=== PATIENT | male | born 1950 | race Caucasian/White ===

== ENCOUNTER 2019-11-16 12:55 | Observation (INO) ==
[2019-11-16] MEDS ORDERED: IOPAMIDOL 100 ML BOTTLE IV ONE (12:56)
[2019-11-16] MEDS ORDERED: 0.9 % SODIUM CHLORIDE 1,000 ML IV ONE (13:17)
--- NOTE | 2019-11-16 13:23 | Emergency Department Note ---
Abdominal Pain HPI - General Chief Complaint: Abdominal Pain Stated Complaint: abdominal pain Time Seen by Provider: 11/16/19 13:07 Source: patient Mode of arrival: ambulatory Limitations: no limitations - History of Present Illness HPI Narrative: 69-year-old male patient presents emergency department with chief complaint of worsening epigastric/middle abdominal pain x3 days. Patient tells me he woke up on Tuesday feeling some the pain. During that time he thought he was constipated used a suppository as well as took some OTC Tums. He mentions h aving a moderately sized bowel movement on . However, his pain has worsened since that time. He describes the pain is a sharp, stabbing pain to the middle of his abdomen. This "moves with me" as he changes position. He denies systemic fever, sweats, chills. However, he has a mild fever in triage. He admits to previous history of hepatitis C but tells me "that is been cleared". He denies nausea, vomiting, diarrhea, hematemesis, hematuria, or hematochezia. ROS: Denies sinus congestion, runny nose, cough, or possible exposure to the novel coronavirus. Denies shortness of breath. Admits to ongoing smoking half pack daily since the age of 15 (27 pack years). Denies retrosternal chest pain or palpitations. Denies dysuria or frequency. Denies focal weakness. - Related Data Home Medications Medication Instructions Recorded Confirmed amlodipine 5 mg tablet 5 mg PO QDAY 08/28/19 11/16/19 methadone 10 mg tablet 10 mg PO QDAY 08/28/19 11/16/19 cyclobenzaprine 10 mg tablet 10 mg PO TID 09/13/19 11/16/19 hydrocodone 10 mg-acetaminophen 1 tab PO PRN PRN tab 09/13/19 11/16/19 325 mg tablet Previous Rx's Medication Instructions Recorded losartan 100 1 tab PO QDAY #90 tab 05/14/19 mg-hydrochlorothiazide 12.5 mg tablet Allergies Allergy/AdvReac Type Severity Reaction Status Date / Time lisinopril Allergy Unknown Cough Unverified 09/13/19 12:58 Review of Systems All systems ED: reviewed and negative except as stated. Abdominal Pain PMH - Past Medical History Medical history: Reports: hypertension, other (Hepatitis C) Psychiatric history: Reports: other (unknown) - Social History Smoking status: Current every day smoker Alcohol use: Reports: None Drug use: Reports: none Physical Exam Limitations: no limitations General appearance: other (Well-developed, well-nourished, somewhat anxious appearing 69-year-old male patient laying semirecumbent on the emergency room gurney obviously uncomfortable. He is in no acute respiratory distress.) Head: atraumatic, normocephalic Eye: Present: PERRL, EOMI (Right eye is deviated laterally. 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 Absent: lymphadenopathy, thyromegaly Chest: Present: symmetric chest wall rise Respiratory: Present: normal lung sounds bilaterally. Absent: respiratory distress, rales/crackles, wheezes, stridor, accessory muscle use, prolonged expiratory phase Cardiovascular: Present: regular rate, normal rhythm. Absent: systolic murmur, diastolic murmur Abdominal: Present: soft, tenderness, guarding, hyperactive bowel sounds, organomegaly. Absent: distention, rebound, rigidity, ascites, mass, bruit, pulsatile mass Abdominal tenderness: Present: epigastrium, rachel umbilical, moderate Extremities: Present: normal inspection, full ROM, normal capillary refill. Absent: pedal edema Neurological: Present: alert, oriented X3 Psychiatric: Present: normal affect, anxious Skin: Present: warm, dry, normal color Course Course Narrative: Patient has considerable abdominal tenderness on exam. He is mildly febrile at 99.4 with an elevated heart rate of 102. We are going to order some screening laboratory studies including a lactic acid. An abdominal/pelvic CT scan with contrast was ordered and reviewed. Normal saline was started at thousand milliliter bolus. Patient was given Dilaudid 0.5 mg IVP. A review of his laboratory studies show the following: CBC hemoglobin 13.6, platelets 110, all others within normal limits. CMP CO2 21, BUN 28, glucose 114, all others within normal limits. Lipase 35. Lactic acid 1.4. Abdominal/pelvic CT scan with contrast read by the radiologist as considerable cholecystitis and cholelithiasis. There was question of pancreatitis and radiologist did r ecommend correlating this with lipase and amylase. Patient's lipase was within normal limits. After reviewing all the data I reached out to our general surgeon (Dr. Owusu) and discussed the case with him. At this time Dr. Owusu advised me to place holding orders he is to be kept n.p.o. and on IV fluids. Dr. Owusu said he would follow him later this evening. With this in mind, the holding orders are going to be placed. Afterwards, patient will be under the care of Dr. Owusu and the surgical service. All further treatment decisions, modalities, and ultimate patient disposition be carried out by Dr. Owusu. Vital Signs Temperature 99.4 F H 11/16/19 12:56 Pulse Rate 109 H 11/16/19 12:56 Respiratory Rate 16 11/16/19 12:56 Blood Pressure 144/110 11/16/19 12:56 Pulse Oximetry (%) 97 11/16/19 12:56 Temperature 99.4 F H 11/16/19 12:56 Pulse Rate 94 H 11/16/19 15:46 Respiratory Rate 16 11/16/19 12:56 Blood Pressure 148/74 11/16/19 15:46 Pulse Oximetry (%) 98 11/16/19 15:46 Abdominal Pain - Lab Data Lab results reviewed: Yes I reviewed the patient's lab results. Result diagrams: 11/16/19 13:25 11/16/19 13:25 Lab Results 11/16/19 11/16/19 11/16/19 Range/Units 13:25 13:25 13:25 WBC 10.8 (4.50-11.00) K/mcL RBC 4.74 (4.63-6.08) M/mcL Hgb 13.6 L (13.7-17.5) g/dL Hct 40.7 (40.1-51.0) % POC Hct 41.0 (41.0-55.0) % MCV 85.9 (80.0-100.0) fL MCH 28.7 (26.0-34.0) pg MCHC 33.4 (31.0-36.0) g/dL RDW 14.3 (11.5-14.5) % Plt Count 110 L (140-440) K/mcL MPV 11.9 H (7.4-10.4) fL Gran % 87.8 H (38.0-78.0) % Lymph % (Auto) 6.1 L (15.5-49.0) % Meade % (Auto) 6.0 (1.0-12.0) % Eos % (Auto) 0 (0.0-7.0) % Baso % (Auto) 0.1 (0.0-2.0) % Gran # 9.51 H (1.80-8.00) K/mcL Lymph # (Auto) 0.66 L (1.50-4.80) K/mcL Meade # (Auto) 0.65 (0.10-0.90) K/mcL Eos # (Auto) 0 (0.00-0.70) K/mcL Baso # (Auto) 0.01 (0.00-0.30) K/mcL Differential Comment VBG Lactic Acid 1.4 (0.5-2.0) mmol/L POC Sodium 135 (133-145) mmol/L Sodium 133 (133-145) mmol/L POC Potassium 3.6 (3.3-5.1) mmol/L Potassium 3.7 (3.3-5.1) mmol/L POC Chloride 102 (96-108) mmol/L Chloride 99 (96-108) mmol/L Carbon Dioxide 21 L (22-30) mmol/L POC Total CO2 23 (22-30) mmol/L Anion Gap 13.0 (8-16) POC BUN 29 H (8-23) mg/dl BUN 28 H (8-23) mg/dl Creatinine 1.0 (0.7-1.2) mg/dl POC Creatinine 1.0 (0.7-1.2) mg/dl GFR Calculation 78 Glucose 114 H (70-105) mg/dL POC Glucose 113 H (70-105) mg/dL Calcium 9.2 (8.6-10.4) mg/dl POC WB Ioniz Calcium 1.12 L (1.16-1.32) mmol/L Total Bilirubin 0.6 (0.0-1.0) mg/dL AST 17 (0-37) U/l ALT 11 (0-40) U/l Alkaline Phosphatase 64 (39-117) U/L Total Protein 7.1 (5.9-8.4) gm/dL Albumin 3.4 (3.2-5.2) gm/dL Globulin 3.7 (2.2-3.7) gm/dL Albumin/Globulin Ratio 0.9 L (1.0-2.3) Lipase 35 (7-60) U/L - Radiology Data Radiology results reviewed: Yes I reviewed the patient's radiology results. Ordering Physician: Ancelmo Juan PA-C Date of Service: 11/16/19 Procedure(s): CT abdomen pelvis w con Accession Number(s): [id number] CLINICAL INFORMATION: Epigastric pain COMPARISON: None. TECHNIQUE: Following enteric contrast, 80 cc of Isovue-370 were injected intravenously, and 60 seconds later, 0.625 mm helical slices were obtained from the mid heart through the subtrochanteric regions. Following reconstruction, 2.5 mm sagittal, coronal and axial reformatted images were processed and reviewed at bone, lung and soft tissue windows. Five minutes later, 0.625 mm helical slices were obtained from the mid heart through the kidneys and viewed at soft tissue windows.The exam was performed using radiation dose optimization techniques including, but not limited to, automated exposure control, adjustment of the mA and/or kV according to patient size and use of iterative reconstruction technique. FINDINGS: Lung bases show focal scarring in the lingular region. There are no effusions. The visualized heart is moderately enlarged with left ventricular dilatation. Abdominal images show minimal fatty change within the liver, but no focal hepatic lesion. The gallbladder wall is mildly enlarged with moderate pericholecystic fluid. A few faint air-containing cholesterol stones are seen within the gallbladder. There is also moderate fluid or edema extending into the karan hepatis, periduodenal and peripancreatic head region. Findings suggestive of cholecystitis. The intrahepatic and common bile ducts are normal caliber: CBD is 5 mm. The pancreas is mildly atrophic, but shows no definite inflammation within the pancreatic parenchyma itself. A 5 mm nonobstructing stone is seen inferior calyx of the left kidney. The remainder of both kidneys, adrenal glands spleen and aorta including aortic branches are normal in size, configuration and attenuation without focal lesion. There is no free air or adenopathy. Pelvic images show prostate and seminal vesicles be normal. Urinary bladder wall appears mildly thickened but this is likely artifact of under distention. The stomach, small bowel appendix and large bowel are unremarkable with exception of a few sigmoid diverticuli. Bone windows show no osseous abnormality. IMPRESSION: 1. Cholecystitis. Intrahepatic and common bile ducts are normal caliber. 2. Fluid in the periduodenal and peripancreatic region is almost certainly related to cholecystitis but please correlate with amylase and lipase to ensure the absence of serologic evidence for pancreatitis. 3. 5 mm nonobstructing stone - inferior calyx left kidney. 4. Sigmoid diverticulosis, but no evidence of diverticulitis. 5. Moderate cardiomegaly with left ventricular dilatation. Interpreted and Authenticated by: Jose Daniel Santos 11/16/19 Disposition Pt seen by PRINCIPAL TECHNICAL WRITER/PA only: Yes Clinical Impression: Cholecystitis with cholelithiasis Qualifiers: Cholelithiasis location: gallbladder Cholecystitis acuity: acute Biliary ob struction: without biliary obstruction Qualified Code(s): K80.00 - Calculus of gallbladder with acute cholecystitis without obstruction Disposition: Xfer As Outpt/Obs ([facility]) Referrals: Jacinto Espitia PA-C [Primary Care Provider] -
[2019-11-16 13:39] LABS: POC Blood Urea Nitrogen 29 mg/dl (8-23); POC CO2 23 mmol/L (22-30); POC Calcium, Ionized 1.12 mmol/L (1.16-1.32); POC Chloride 102 mmol/L (96-108); POC Glucose, Random 113 mg/dL (70-105); POC Potassium 3.6 mmol/L (3.3-5.1); POC Sodium 135 mmol/L (133-145)
[2019-11-16] MEDS: HYDROmorphone 0.5 MG/0.5 ML SYRINGE IV PRN ×6 (13:46→23:08)
[2019-11-16 14:51] LABS: ALT/SGPT 11 U/l (0-40); AST/SGOT 17 U/l (0-37); Albumin 3.4 gm/dL (3.2-5.2); Albumin/Globulin Ratio 0.9 (1.0-2.3); Alkaline Phosphatase 64 U/L (39-117); Bilirubin,Total 0.6 mg/dL (0.0-1.0); Blood Urea Nitrogen 28 mg/dl (8-23); Calcium 9.2 mg/dl (8.6-10.4); Carbon Dioxide 21 mmol/L (22-30); Chloride 99 mmol/L (96-108); Globulin 3.7 gm/dL (2.2-3.7); Glomerular Filtration Rate 78; Glucose 114 mg/dL (70-105)
[2019-11-16 15:05] LABS: Basophils # (Auto) 0.01 K/mcL (0.00-0.30); Basophils % (Auto) 0.1 % (0.0-2.0); Eosinophils # (Auto) 0 K/mcL (0.00-0.70); Eosinophils % (Auto) 0 % (0.0-7.0); Granulocytes % (Auto) 87.8 % (38.0-78.0); Hematocrit 40.7 % (40.1-51.0); Hemoglobin 13.6 g/dL (13.7-17.5); Lymphocytes # (Auto) 0.66 K/mcL (1.50-4.80); Lymphocytes % (Auto) 6.1 % (15.5-49.0); Mean Cell Volume 85.9 fL (80.0-100.0); Mean Corpuscular HGB Conc 33.4 g/dL (31.0-36.0); Mean Platelet Volume 11.9 fL (7.4-10.4); Monocytes # (Auto) 0.65 K/mcL (0.10-0.90); Platelet Count 110 K/mcL (140-440); RBC 4.74 M/mcL (4.63-6.08); Red Cell Distribution Width 14.3 % (11.5-14.5); WBC 10.8 K/mcL (4.50-11.00)
--- NOTE | 2019-11-16 15:19 | Cat Scan Report ---
CLINICAL INFORMATION: Epigastric pain COMPARISON: None. TECHNIQUE: Following enteric contrast, 80 cc of Isovue-370 were injected intravenously, and 60 seconds later, 0.625 mm helical slices were obtained from the mid heart through the subtrochanteric regions. Following reconstruction, 2.5 mm sagittal, coronal and axial reformatted images were processed and reviewed at bone, lung and soft tissue windows. Five minutes later, 0.625 mm helical slices were obtained from the mid heart through the kidneys and viewed at soft tissue windows.The exam was performed using radiation dose optimization techniques including, but not limited to, automated exposure control, adjustment of the mA and/or kV according to patient size and use of iterative reconstruction technique. FINDINGS: Lung bases show focal scarring in the lingular region. There are no effusions. The visualized heart is moderately enlarged with left ventricular dilatation. Abdominal images show minimal fatty change within the liver, but no focal hepatic lesion. The gallbladder wall is mildly enlarged with moderate pericholecystic fluid. A few faint air-containing cholesterol stones are seen within the gallbladder. There is also moderate fluid or edema extending into the karan hepatis, periduodenal and peripancreatic head region. Findings suggestive of cholecystitis. The intrahepatic and common bile ducts are normal caliber: CBD is 5 mm. The pancreas is mildly atrophic, but shows no definite inflammation within the pancreatic parenchyma itself. A 5 mm nonobstructing stone is seen inferior calyx of the left kidney. The remainder of both kidneys, adrenal glands spleen and aorta including aortic branches are normal in size, configuration and attenuation without focal lesion. There is no free air or adenopathy. Pelvic images show prostate and seminal vesicles be normal. Urinary bladder wall appears mildly thickened but this is likely artifact of under distention. The stomach, small bowel appendix and large bowel are unremarkable with exception of a few sigmoid diverticuli. Bone windows show no osseous abnormality. IMPRESSION: 1. Cholecystitis. Intrahepatic and common bile ducts are normal caliber. 2. Fluid in the periduodenal and peripancreatic region is almost certainly related to cholecystitis but please correlate with amylase and lipase to ensure the absence of serologic evidence for pancreatitis. 3. 5 mm nonobstructing stone - inferior calyx left kidney. 4. Sigmoid diverticulosis, but no evidence of diverticulitis. 5. Moderate cardiomegaly with left ventricular dilatation. Interpreted and Authenticated by: Jose Daniel Santos 11/16/19
[2019-11-16] MEDS ORDERED: NICOTINE 21 MG PATCH TOPICAL ONE (15:58)
[2019-11-16] MEDS ORDERED: ONDANSETRON 4 MG/2 ML VIAL IV PRN (16:00)
[2019-11-16] MEDS ORDERED: ACETAMINOPHEN 325 MG TABLET PO PRN (16:00)
--- NOTE | 2019-11-16 16:45 | General Surg History&Physical ---
History of Present Illness Patient information: Note initiated : 11/16/19 at 4:43 pm Service Date, if different from initiated Date: [] Patient: Norris Owusu a 69 y/o M admitted on for abdominal pain. Chief Complaint: [] HPI: Mr. Owusu is a 69 year old M Admitted with acute cholecystitis with cholelithiasis. the patient awake and on Tuesday morning with severe epigastric pain. He tried multiple [id number]-[id number] meds without any improvement. The pain became constant and has remained constant since onset. He denies having nausea and vomiting. He finally came to the emergency room because of uncontrolled pain. He has not had any by mouth intake for 3 days because of pain. Evaluation revealed edematous gallbladder with multiple stones and pericholecystic fluid compatible with acute cholecystitis. Patient is evaluated and counseled for laparoscopic cholecystectomy. Review of Systems - Constitutional fatigue, lethargy, malaise, weakness, weight loss - EENT Nose, mouth and throat: other (loss of vision left eye) - Cardiovascular no chest pain at rest, no claudication, no palpatations, no rapid heart rate, no syncope - Respiratory no cough, no wheezing, no pain with cough - Gastrointestinal abdominal pain, bloating, cramping, heartburn - Genitourinary no urinary frequency, no urinary incontinence - Musculoskeletal arthralgias, back pain, joint swelling, myalgias, neck pain, stiffness - Integumentary other ( history of skin cancer) - Neurological no dizziness, no headache(s), no syncope, no vertigo, no weakness - Psychiatric no anxiety, no confusion, no depression - Endocrine no fatigue - Hematologic/Lymphatic no easy bleeding, no easy bruising, no lymphadenopathy - Allergic/Immunologic no tongue swelling, no throat swelling, no uticaria, no wheezing, no lip swelling Past History Past medical history: Hypertension History of hepatitis C treated 5 years previously Past surgical history: Left shoulder replacement Lumbar back surgery Past family history: Mother age 24 due to cervical cancer Father age 83 due to stroke Past social history: Cigarettes one half pack per day Denies alcohol use Denies drug use Medications and Allergies Home Medications Medication Instructions Recorded Confirmed Type losartan 100 1 tab PO QDAY #90 tab 05/14/19 11/16/19 Rx mg-hydrochlorothiazide 12.5 mg tablet amlodipine 5 mg tablet 5 mg PO QDAY 08/28/19 11/16/19 History methadone 10 mg tablet 10 mg PO QDAY 08/28/19 11/16/19 History cyclobenzaprine 10 mg tablet 10 mg PO TID 09/13/19 11/16/19 History hydrocodone 10 mg-acetaminophen 1 tab PO PRN PRN tab 09/13/19 11/16/19 History 325 mg tablet Allergies Allergy/AdvReac Type Severity Reaction Status Date / Time lisinopril Allergy Unknown Cough Unverified 09/13/19 12:58 Exam Temp Pulse Resp BP Pulse Ox 99.4 F H 94 H 16 148/74 98 11/16/19 12:56 11/16/19 15:46 11/16/19 12:56 11/16/19 15:46 11/16/19 15:46 - General physical appearance well developed, well nourished, no distress - Eyes other (uneven pupils; no vision left eye) - ENT normal pinna, normal nares, normal mucosa, no hearing loss, no congestion - Head Head exam IM: Present: atraumatic, normocephalic - Neck no masses, no bruits, trachea midline, no lymphadenopathy, no venous distension - Cardiovascular Cardiovascular exam IM: Present: normal rate and rhythm, RRR, +S1, +S2. Absent: JVD, tachycardia - Respiratory normal expansion, normal respiratory effort, clear to percussion, clear to auscultation - Abdomen Abdomen: Present: soft, tender ( tenderness with guarding and rebound right upper quadrant and epigastrium), bowel sounds Hernia: Present: none - Genitourinary Present: normal penis with no external lesions - Integumentary Present: no rash, no growths, no abnormal pigmentation - Neurologic Present: normal coordination, normal sensation - Musculoskeletal Present: normal gait, normal posture - Psychiatric Present: oriented to time, oriented to person, oriented to place, speech is normal, memory intact Assessment and Plan (1) Cholecystitis with cholelithiasis Zosyn 3.375 g IV every 6 hours Nothing by mouth after midnight Scheduled for cholecystectomy tomorrow Status: Acute Qualifiers: Cholelithiasis location: gallbladder Cholecystitis acuity: acute Biliary obstruction: without biliary obstruction Qualified Code(s): K80.00 - Calculus of gallbladder with acute cholecystitis without obstruction (2) Low back pain Resume oral analgesics in the postoperative period Status: Chronic Qualifiers: Chronicity: chronic Back pain laterality: midline Sciatica presence: without sciatica Qualified Code(s): M54.5 - Low back pain
--- NOTE | 2019-11-16 16:58 | XRay Report ---
CLINICAL INFORMATION: preop evaluation COMPARISON: None. FINDINGS: Heart is mildly enlarged. Mediastinum and pulmonary vessels are normal. There is minor scattered atelectasis and or scarring in both mid and lower lungs. No camilo infiltrates or effusions. IMPRESSION: Mild cardiomegaly and minor scattered scarring or atelectasis both mid and lower lungs. No infiltrates or other acute disease Interpreted and Authenticated by: Jose Daniel Santos 11/16/19
[2019-11-16 17:19] LABS: Prothrombin Time 13.6 sec (11.9-14.5)
[2019-11-16] MEDS: 0.9 % SODIUM CHLORIDE 1,000 ML IV SCH (18:41)
[2019-11-16] MEDS: PIPERACILLIN SODIUM/TAZOBACTAM 3.375 GM in DEXTROSE 5% IN WATER 50 ML IV SCH ×2 (18:42→23:51)
[2019-11-16] MEDS: 0.9 % SODIUM CHLORIDE 10 ML SYRINGE IV SCH (21:40)
[2019-11-17] MEDS: HYDROmorphone 0.5 MG/0.5 ML SYRINGE IV PRN ×4 (01:14→07:27)
[2019-11-17] MEDS: 0.9 % SODIUM CHLORIDE 1,000 ML IV SCH ×4 (03:15→21:41)
[2019-11-17 04:18] LABS: Appearance,Urine CLEAR; Bacteria,Urine 0 /hpf (0); Bilirubin,Urine NEG (NEG); Color,Urine YELLOW; Culture Indicated,Urine NO; Glucose,Urine (UA) NEGATIVE (NEG); Ketones,Urine NEG (NEG); Leukocyte Esterase,Urine NEG /uL (NEG); Mucus,Urine FEW /hpf (0); Nitrate,Urine NEG (NEG); Protein,Urine 30 mg/dL (NEG); Specific Gravity,Urine 1.005 (1.000-1.035); Urine Blood 0.03 mg/dL (<0.03); Urine RBC 1 /hpf (0-1); Urine Squamous Epithelial Cell 0 /hpf (0-4); Urine WBC 1 /hpf (0-4); Urobilinogen,Urine NEG (NEG)
[2019-11-17] MEDS: 0.9 % SODIUM CHLORIDE 10 ML SYRINGE IV SCH ×5 (05:20→20:04)
[2019-11-17] MEDS: PIPERACILLIN SODIUM/TAZOBACTAM 3.375 GM in DEXTROSE 5% IN WATER 50 ML IV SCH ×4 (05:20→23:27)
[2019-11-17] MEDS ORDERED: IPRATROPIUM/ALBUTEROL 3 ML AMPUL.NEB NEB PRN ×4 (08:00→12:11)
[2019-11-17] MEDS ORDERED: SCOPOLAMINE 1 PATCH PATCH TOPICAL PRN ×2 (08:00→12:11)
[2019-11-17] MEDS ORDERED: METHADONE 5 MG TABLET PO SCH (09:00)
[2019-11-17] MEDS ORDERED: LOSARTAN 50 MG TABLET PO SCH (09:00)
[2019-11-17] MEDS ORDERED: NON FORMULARY MEDICATION 1 DOSE MISCELL (Losartan/Hydrochlorothiazide [Hyzaar 100-12.5 Tab PO SCH (09:00)
[2019-11-17] MEDS ORDERED: amLODIPine 5 MG TABLET PO SCH (09:00)
[2019-11-17] MEDS ORDERED: HYDROCHLOROTHIAZIDE 12.5 MG CAPSULE PO SCH (09:00)
[2019-11-17] MEDS ORDERED: SUGAMMADEX SODIUM 200 MG/2 ML VIAL IV ONE (10:55)
[2019-11-17] MEDS ORDERED: DEXAMETHASONE 10 MG/ML VIAL IV ONE (10:55)
[2019-11-17] MEDS ORDERED: ONDANSETRON 4 MG/2 ML VIAL IV ONE (10:55)
[2019-11-17] MEDS ORDERED: fentaNYL 100 MCG/2 ML VIAL IV ONE (10:55)
[2019-11-17] MEDS ORDERED: PROPOFOL 200 MG/20 ML VIAL IV ONE (10:55)
[2019-11-17] MEDS ORDERED: SUCCINYLCHOLINE 20 MG/ML ML IV ONE (10:55)
[2019-11-17] MEDS ORDERED: ROCURONIUM 10 MG/ML ML IV ONE (10:55)
[2019-11-17] MEDS ORDERED: ePHEDrine 50 MG/ML AMPUL IV ONE (10:55)
[2019-11-17] MEDS ORDERED: HYDROmorphone 1 MG/ML SYRINGE IV ONE (10:55)
[2019-11-17] MEDS ORDERED: KETAMINE 100 MG/ML ML IV ONE (10:55)
[2019-11-17] MEDS ORDERED: LIDOCAINE HCL/PF 100 MG/5 ML SYRINGE IV ONE (10:55)
[2019-11-17] MEDS ORDERED: METOPROLOL TARTRATE 5 MG/5 ML VIAL IV PRN ×2 (11:27→12:11)
[2019-11-17] MEDS ORDERED: HYDROmorphone 0.5 MG/0.5 ML SYRINGE IV PRN ×2 (11:27→12:11)
[2019-11-17] MEDS ORDERED: ATROPINE SULFATE 0.4 MG/ML VIAL IV PRN ×2 (11:27→12:11)
[2019-11-17] MEDS ORDERED: NALOXONE HCL 0.4 MG/ML VIAL IV PRN ×2 (11:27→12:11)
[2019-11-17] MEDS ORDERED: ePHEDrine 50 MG/ML AMPUL IV PRN ×2 (11:27→12:11)
[2019-11-17] MEDS ORDERED: PROMETHAZINE 25 MG/ML VIAL IV PRN ×3 (11:27→12:11)
[2019-11-17] MEDS ORDERED: METHOCARBAMOL 1,000 MG/10 ML VIAL IV PRN ×2 (11:27→12:11)
[2019-11-17] MEDS ORDERED: ACETAMINOPHEN 1,000 MG/100 ML BOTTLE IV ONE (11:27)
[2019-11-17] MEDS ORDERED: MEPERIDINE 25 MG/ML SYRINGE IV PRN ×2 (11:27→12:11)
[2019-11-17] MEDS ORDERED: diphenhydrAMINE 50 MG/ML VIAL IV PRN ×2 (11:27→12:11)
[2019-11-17] MEDS ORDERED: ONDANSETRON 4 MG/2 ML VIAL IV PRN ×3 (11:27→12:11)
[2019-11-17] MEDS ORDERED: LACTATED RINGERS 1,000 ML IV SCH ×2 (11:30→12:11)
--- NOTE | 2019-11-17 11:56 | Brief Operative Note ---
Date of procedure: 11/17/19 Pre-op diagnosis: acute cholecystitis with cholelithiasis Post-op diagnosis: other (acute cholecystitis with cholelithiasis) Procedure: laparoscopic cholecystitis Grafts/Implants: No ([id number]) Anesthesia: GETA Findings: severe inflammation of the gallbladder Complications: none Surgeon: Malcom Owusu Estimated blood loss (cc): 20 Specimens Removed/Pathology: other (gallbladder) Condition: stable Disposition: PACU
[2019-11-17] MEDS: fentaNYL 100 MCG/2 ML VIAL IV PRN ×8 (12:05→12:43)
[2019-11-17] MEDS ORDERED: ACETAMINOPHEN 325 MG TABLET PO PRN (12:11)
[2019-11-17] MEDS: ACETAMINOPHEN 325 MG TABLET PO SCH ×2 (14:20→19:48)
[2019-11-17] MEDS: HYDROmorphone 1 MG/ML SYRINGE IV PRN ×3 (14:21→22:19)
[2019-11-18] MEDS: ACETAMINOPHEN 325 MG TABLET PO SCH ×3 (02:05→13:33)
[2019-11-18] MEDS: HYDROmorphone 1 MG/ML SYRINGE IV PRN (02:06)
[2019-11-18] MEDS: 0.9 % SODIUM CHLORIDE 10 ML SYRINGE IV SCH ×4 (04:31→13:07)
[2019-11-18] MEDS: 0.9 % SODIUM CHLORIDE 1,000 ML IV SCH ×3 (04:31→11:27)
[2019-11-18] MEDS: PIPERACILLIN SODIUM/TAZOBACTAM 3.375 GM in DEXTROSE 5% IN WATER 50 ML IV SCH ×2 (05:42→11:58)
[2019-11-18 07:33] LABS: Basophils # (Auto) 0.02 K/mcL (0.00-0.30); Basophils % (Auto) 0.3 % (0.0-2.0); Eosinophils # (Auto) 0.18 K/mcL (0.00-0.70); Eosinophils % (Auto) 2.4 % (0.0-7.0); Granulocytes % (Auto) 82.6 % (38.0-78.0); Hematocrit 33.3 % (40.1-51.0); Hemoglobin 10.9 g/dL (13.7-17.5); Lymphocytes # (Auto) 0.58 K/mcL (1.50-4.80); Lymphocytes % (Auto) 7.7 % (15.5-49.0); Mean Cell Volume 86.9 fL (80.0-100.0); Mean Corpuscular HGB Conc 32.7 g/dL (31.0-36.0); Mean Platelet Volume 12.8 fL (7.4-10.4); Monocytes # (Auto) 0.53 K/mcL (0.10-0.90); Platelet Count 81 K/mcL (140-440); RBC 3.83 M/mcL (4.63-6.08); Red Cell Distribution Width 14.5 % (11.5-14.5); WBC 7.6 K/mcL (4.50-11.00)
[2019-11-18 07:34] LABS: ALT/SGPT 10 U/l (0-40); AST/SGOT 15 U/l (0-37); Albumin 2.3 gm/dL (3.2-5.2); Albumin/Globulin Ratio 0.7 (1.0-2.3); Alkaline Phosphatase 53 U/L (39-117); Bilirubin,Direct < 0.2 mg/dL (0.0-0.3); Bilirubin,Total 0.4 mg/dL (0.0-1.0); Blood Urea Nitrogen 14 mg/dl (8-23); Calcium 8.1 mg/dl (8.6-10.4); Carbon Dioxide 22 mmol/L (22-30); Chloride 107 mmol/L (96-108); Globulin 3.4 gm/dL (2.2-3.7); Glomerular Filtration Rate 98; Glucose 124 mg/dL (70-105); Lactate Dehydrogenase 204 U/L (94-250); Triglycerides 87 mg/dl (<150); Uric Acid 1.8 mg/dL (2.5-8.0)
[2019-11-18 07:36] LABS: Phosphorous 2.1 mg/dL (2.7-4.5)
[2019-11-18] MEDS ORDERED: amLODIPine 5 MG TABLET PO SCH (09:00)
[2019-11-18] MEDS ORDERED: METHADONE 5 MG TABLET PO SCH (09:00)
[2019-11-18] MEDS ORDERED: HYDROCHLOROTHIAZIDE 12.5 MG CAPSULE PO SCH (09:00)
[2019-11-18] MEDS ORDERED: LOSARTAN 50 MG TABLET PO SCH (09:00)
--- NOTE | 2019-11-18 13:34 | Discharge Summary ---
Providers - Providers Patient information: Note initiated : 11/18/19 at 1:32 pm Service Date, if different from initiated Date: [] Patient: Norris Owusu 69 y/o M admitted on 11/16/19 for abdominal pain. Chief Complaint: [] Date of admission: 11/16/19 Discharge date: 11/17/19 Attending physician: Malcom Owusu Hospitalization Hospital Course: 69-year-old male admitted with acute severe abdominal pain nausea but no vomiting. Pain was primarily in the epigastrium and right upper quadrant. He had a palpable mass in the right upper quadrant. CT showed dilated gallbladder ultrasound confirmed. He underwent cholecystectomy yesterday and was found to have a an acutely severely inflamed gallbladder necrosis. Cholecystectomy was performed uneventfully. He is well and is stable for discharge. White blood count 7.6, hemoglobin 10.9, hematocrit 33.3 Discharge diagnosis: acute cholecystitis with cholelithiasis Secondary discharge diagnosis: Hypertension Prior history of hepatitis C Reason for admission: abdominal pain nausea and vomiting Procedures: Laparoscopic cholecystectomy Pertinent studies/significant findings: CT of abdomen and pelvis with contrast Upper abdominal ultrasound Complications: None Exam Temp Pulse Resp BP Pulse Ox 97.7 F 57 L 20 117/72 94 11/18/19 11:52 11/18/19 11:52 11/18/19 11:52 11/18/19 11:52 11/18/19 11:52 - General physical appearance well developed, well nourished, no distress - Eyes normal ocular movement, other ( loss of vision left eye) - ENT normal pinna, normal nares, normal mucosa, no hearing loss, no congestion - Head Head exam IM: Present: atraumatic, normocephalic - Neck no masses, no bruits, trachea midline, no lymphadenopathy, no venous distension - Cardiovascular Cardiovascular exam IM: Present: normal rate and rhythm - Respiratory normal expansion, normal respiratory effort, clear to percussion, clear to auscultation - Abdomen Abdomen: Present: soft, tender (mild tenderness around port sites otherwise benign abdomen; good active bowel sounds), bowel sounds Hernia: Present: none - Genitourinary Present: normal penis with no external lesions - Integumentary Present: no rash, no growths, no abnormal pigmentation - Neurologic Present: normal coordination, normal sensation - Musculoskeletal Present: normal gait, normal posture - Psychiatric Present: oriented to time, oriented to person, oriented to place, speech is normal, memory intact Discharge Plan - Patient/Caregiver Discharge Instructions Activity: increase activity as tolerated Diet: Low Fat Additional Instructions: Follow-up in the office in 2 weeks Prescriptions: Levofloxacin [Levaquin] 750 mg PO DAILY #10 tab Transmission Status: Pending to [facility] - Follow up Plan Follow up with: Jacinto Espitia PA-C [Primary Care Provider] - Malcom Owusu MD [Physician] - (Call the office to verify appointment in 2 weeks) Disposition: Home, Self-Care Prognosis: Good Rehab Potential: Good I certify that the patient requires SNF services.: No Overall status at discharge: patient is progressing back to baseline Pending Studies Resuscitation Status Full Code Diet Full Liquid Diet Start Sat Patrick 1212 Acetaminophen (Tylenol) 650 mg PO Q6H [facility]; Protocol Last Admin: 11/18/19 08:51 Dose: 650 mg Documented by: Admin: 11/18/19 02:05 Dose: 650 mg Documented by: Admin: 11/17/19 19:48 Dose: 650 mg Documented by: Admin: 11/17/19 14:20 Dose: 650 mg Documented by: NONA Amlodipine Besylate (Norvasc) 5 mg PO QDAY [facility] Last Admin: 11/18/19 08:50 Dose: 5 mg Documented by: NONA Hydrochlorothiazide (Oretic) 12.5 mg PO DAILY [facility] Last Admin: 11/18/19 08:51 Dose: 12.5 mg Documented by: NONA Hydromorphone HCl (Dilaudid) 1 mg IV Q2HP PRN; Protocol PRN Reason: Per Pain Protocol Last Admin: 11/18/19 02:06 Dose: 1 mg Documented by: Admin: 11/17/19 22:19 Dose: 1 mg Documented by: Admin: 11/17/19 19:22 Dose: 1 mg Documented by: Admin: 11/17/19 14:21 Dose: 1 mg Documented by: NONA Sodium Chloride (Sodium Chloride 0.9%) 1,000 mls @ 125 mls/hr IV .Q8H [facility] Last Admin: 11/18/19 11:27 Dose: Not Given Documented by: Admin: 11/18/19 05:42 Dose: 125 mls/hr Documented by: Infusion: 11/18/19 05:41 Dose: 125 mls/hr Documented by: Admin: 11/18/19 04:31 Dose: Not Given Documented by: Admin: 11/17/19 21:41 Dose: 125 mls/hr Documented by: Infusion: 11/17/19 21:06 Dose: 125 mls/hr Documented by: Admin: 11/17/19 13:06 Dose: 125 mls/hr Documented by: NONA Piperacillin Sod/Tazobactam (Sod 3.375 gm/ Dextrose) 50 mls @ 100 mls/hr IV Q6H [facility]; Protocol Last Admin: 11/18/19 11:58 Dose: 100 mls/hr Documented by: Infusion: 11/18/19 06:12 Dose: 100 mls/hr Documented by: Admin: 11/18/19 05:42 Dose: 100 mls/hr Documented by: Infusion: 11/17/19 23:57 Dose: 100 mls/hr Documented by: Admin: 11/17/19 23:27 Dose: 100 mls/hr Documented by: Infusion: 11/17/19 17:52 Dose: 100 mls/hr Documented by: Admin: 11/17/19 17:22 Dose: 100 mls/hr Documented by: NONA Losartan Potassium (Cozaar) 100 mg PO DAILY [facility] Last Admin: 11/18/19 08:50 Dose: 100 mg Documented by: NONA Methadone HCl (Dolophine) 10 mg PO QDAY [facility] Last Admin: 11/18/19 08:49 Dose: 10 mg Documented by: NONA Sodium Chloride (Saline Flush) 10 ml IV Q8 [facility] Last Admin: 11/18/19 13:07 Dose: Not Given Documented by: Admin: 11/18/19 04:31 Dose: Not Given Documented by: Admin: 11/17/19 20:04 Dose: Not Given Documented by: Admin: 11/17/19 13:10 Dose: Not Given Documented by: NONA Sodium Chloride (Saline Flush) 10 ml IV Q8 [facility] Last Admin: 11/18/19 13:07 Dose: Not Given Documented by: Admin: 11/18/19 04:32 Dose: Not Given Documented by: Admin: 11/17/19 20:04 Dose: Not Given Documented by: Admin: 11/17/19 13:10 Dose: Not Given Documented by: MARIAMORGAN Shift Summary 11/18/19 02:40 Shift Summary by Shannan Weaver Pt is A&Ox4. VSS on RA. Up to BR w/SBA. Tolerating full liquid diet. Three lap sites to abdomen w/norberto & Tegaderm w/shadow drainage. RADHA x1 - 125 cc serosanguineous drainage so far this shift. Pt received scheduled PO Tylenol and PRN Dilaudid 1 mg x 3 for pain. IV to LFA w/NS @ 125 ml/hr. Getting Zosyn Q6H. Likely d/c today. Will update with verbal report. Initialized on 11/18/19 02:40 - END OF NOTE
--- NOTE | 2019-11-19 12:30 | Operative Note ---
DATE OF OPERATION: 11/17/2019 PREOPERATIVE DIAGNOSIS: Acute cholecystitis with cholelithiasis. POSTOPERATIVE DIAGNOSIS: Acute cholecystitis with cholelithiasis. PROCEDURE: Laparoscopic cholecystectomy. SURGEON: Malcom Owusu M.D. FINDINGS: Severe inflammation of gallbladder. DESCRIPTION OF PROCEDURE: Under general anesthesia, the patient's abdomen was prepped and draped in a sterile field. A supraumbilical midline incision was made. Veress needle was inserted uneventfully. Abdomen was insufflated with 3 liters of CO2. A 12 mm scope was placed. Laparoscope was placed. Under videoscopic guidance, a 12 mm port and two 5 mm ports were placed in the right subcostal region. The gallbladder was grasped but could not be adequately dissected, so it was decompressed with a Weck needle. It was then regrasped and positioned. Because of the severe inflammation, most of the dissection was carried out bluntly. Using the [place] dissector, the cystic duct was isolated and followed back to the gallbladder. The rest of the infundibulum was dissected using blunt dissection. Cystic artery branches were isolated. These were clipped with four clips each and divided. The cystic duct was transected using the Endo MIKA stapler on the wall of the gallbladder. The gallbladder was then totally dissected using blunt dissection with a [place] dissector. No cautery was needed because of the severe edema and inflammation. The gallbladder was placed in an Endopouch and retrieved. Irrigation was carried out. RADHA drain was placed in the subhepatic space. It was brought out through the lateral incision. Ports were removed. Fascia at the umbilicus was closed with interrupted 0 Vicryl. Skin incisions were closed with norberto. The patient tolerated the procedure well. Tegaderm dressings were placed. He was awakened, transferred to a bed, and taken to the postanesthetic care unit in stable, satisfactory condition. LCS:moose Job ID: [id number] Doc ID: [id number] Malcom Owusu M.D.
--- NOTE | 2019-11-19 12:40 | Surgical Pathology Report ---
HISTOLOGY SPECIMEN MICROSCOPIC DIAGNOSIS GALLBLADDER, CHOLECYSTECTOMY: -- NECROTIZING ACUTE AND CHRONIC CHOLECYSTITIS. -- CHOLELITHIASIS. -- ONE PERICYSTIC LYMPH NODE WITH REACTIVE LYMPHOID HYPERPLASIA. (DMT:sln) CLINICAL HISTORY Abdominal pain. PROCEDURAL IMPRESSION Cholecystitis. GROSS DESCRIPTION The specimen is received in formalin as gallbladder and consists of a cholecystectomy specimen that measures 11.0 x 4.0 x 3.5 c. The serosa is pale yellow with prominent areas of hemorrhage and hyperemia, along with epstein-green areas of exudate. The hepatic bed is thin with areas of disruption. The cystic duct has two metal clips. Opening reveals green-brown bilious material with numerous soft yellow gallstones that range in size from 0.1 to 1.0 cm. The mucosa is dark green-brown with areas of hemorrhage and erosion. A possible 0.5 cm lymph node is noted within the region of the gallbladder neck. The wall ranges in thickness from 0.2 to 1.0 cm. Areas of pale yellow discoloration are noted throughout the wall. Vacuum Form Operator tissue submitted in two blocks. (ACP:adj) Electronically Signed by: Sabas Hernandez M.D.
== END 2019-11-18 14:25 | disposition home or self-care (01) ==
LOC: ED 12:55 → MEDSUR 12:55
PROVIDERS: ADMIT Family Medicine Adult Medicine; ATTEND Family Medicine Adult Medicine